=== PATIENT | male | born 1940 | race Caucasian/White ===

== ENCOUNTER 2016-10-20 10:26 | Day surgery (SDC) | payer OTHER ==
[2016-10-20] MEDS ORDERED: LIDOCAINE 1% 2 ML INJ ONE (10:49)
[2016-10-20] MEDS ORDERED: LIDOCAINE 1% 2 ML INJ ID PRN (10:57)
[2016-10-20] MEDS ORDERED: LR 1,000 ML IV SCH (11:00)
[2016-10-20 11:38] LABS: INR 1.93 (0.83-1.16); PROTIME(PATIENT) 22.2 SEC (12.0-15.0)
[2016-10-20 11:49] LABS: ANION GAP 8 mEq/L (8-16); CALCIUM 9.2 mg/dL (8.5-10.4); CARBON DIOXIDE 25 mEq/l (22-31); CHLORIDE 104 mEq/L (97-110); CREATININE 1.2 mg/dL (0.7-1.3); GLOMERULAR FILTRATION RATE 59; GLUCOSE 96 mg/dL (70-100); POTASSIUM 4.6 mEq/L (3.5-5.2); SODIUM 137 mEq/L (134-144)
--- NOTE | 2016-10-20 12:06 | PDANEPAE ---
ANE History of Present Illness burning in substernal area, difficulty swallowing. ANE Past Medical History - Cardiovascular History Hx Hypertension: Yes Hx Arrhythmias: Yes Hx Chest Pain: Yes Hx Coronary Artery / Peripheral Vascular Disease: Yes Hx CHF / Valvular Disease: Yes Hx Palpitations: No - Pulmonary History Hx COPD: No Hx Asthma/Reactive Airway Disease: No Hx Recent Upper Respiratory Infection: No Hx Oxygen in Use at Home: No - Neurologic History Hx Cerebrovascular Accident: No Hx Seizures: No Hx Dementia: No - Endocrine History Hx Diabetes: No - Renal History Hx Renal Disorders: No - Liver History Hx Hepatic Disorders: No - Neurological & Psychiatric Hx Hx Neurological and Psychiatric Disorders: No - Cancer History Hx Cancer: No - Congenital Disorder History Hx Congenital Disorders: No - GI History Hx Gastrointestinal Disorders: Yes - Chronic Pain History Chronic Pain: Yes (ABD) ANE Review of Systems - Exercise capacity Exercise capacity: >=4 METS METS (RN): 3 METS - Systems Cardiac: Reports: edema (hx of CHF) Muscolosketal: Reports: joint pain (gout) - Pacemaker Pacemaker Type: Permanent Pacer/Defib (Model [id number], with defibrillator; with pacemaker for about 38 years following [place]) 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[employer] Pacemaker Model: [id number] ANE Patient History - Allergies Allergies/Adverse Reactions: cephalexin [Cephalexin] Allergy (Verified 08/25/12 14:48) eplerenone [From INSPRA] Allergy (Verified 08/25/12 14:48) - Home Medications Home Medications: Aspirin [Aspir 81] 81 mg PO DAILY 08/25/12 [Last Taken 10/19/16] Carvedilol [Coreg] 50 mg PO BID 08/25/12 [Last Taken 10/20/16] Digoxin [Lanoxin] 0.125 mg PO HS 08/25/12 [Last Taken 10/19/16] Enalapril Maleate [Vasotec 2.5 MG (RX)] 2.5 mg PO DAILY06 08/25/12 [Last Taken 10/20/16] Eplerenone [Inspra 25 MG (RX)] 25 mg PO BID 08/25/12 [Last Taken 10/20/16] Furosemide [Lasix 40 MG (RX)] 40 mg PO BID 08/25/12 [Last Taken 10/19/16] Isosorbide 1 gm MC TID 08/25/12 [Last Taken 10/20/16] Warfarin Sodium [Coumadin 5MG (RX)] mg PO HS 08/25/12 [Last Taken 10/16/16] ASPIRIN DAILY 10/08/16 [Last Taken 10/19/16] Allopurinol DAILY06 10/08/16 [Last Taken 10/19/16] Coreg BID 10/08/16 [Last Taken 10/20/16] Omeprazole DAILY06 10/08/16 [Last Taken 10/19/16] SIMVASTATIN HS 10/08/16 [Last Taken 10/19/16] - NPO status NPO Since - Liquids (Date): 10/19/16 - Anes Hx Anes Hx: 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
[2016-10-20] MEDS ORDERED: MIDAZOLAM 2 MG/2 ML VIAL ONE (12:20)
[2016-10-20] MEDS ORDERED: PROPOFOL 200 MG/20 ML VIAL ONE (12:21)
--- NOTE | 2016-10-20 12:28 | PDGENHP ---
History & Physical Short Chief Complaint: dysphagia History of Present Illness: dysphagia and occ HB Pertinent Past, Social, Family History: fhx no cc. neg ros. alllergies listed Relevant Physical Exam: cta. s1s2, irreg. +BS,soft NT. A+Ox3 Cardiorespiratory Assessment: cta s11 s2, irreg irreg
[2016-10-20] MEDS ORDERED: PHENYLEPHRINE HCL 100 MCG/ML SYR ONE (12:44)
[2016-10-20] MEDS ORDERED: NALOXONE HCL 0.4 MG/ML INJ IVP PRN (12:56)
[2016-10-20] MEDS ORDERED: fentaNYL 100 MCG/2 ML INJ IVP PRN (12:56)
--- NOTE | 2016-10-20 13:02 | POSTOPPROG ---
Post Op Note Date of Operation: 10/20/16 Surgeon: Christoph Conti Anesthesiologist: oliver Anesthesia: Other (Specify) (IV general) Pre-op Diagnosis: dysphagia Post-op Diagnosis: distal esoph stenosis s/p balloon dilation Indication: dysphagia Procedure: egd with bx and balloon dilation Findings: esoph stenosis Inf/Abcess present in the surg proc area at time of surgery?: No EBL: Minimal (few ml) Complications: none immediate
[2016-10-20 13:08] VITALS: TEMP 97.7
[2016-10-20 13:20] VITALS: PULSE 75
[2016-10-20 13:35] VITALS: RESP 16
--- NOTE | 2016-10-20 13:55 | GPN ---
[f rep st] PROCEDURE NOTE PROCEDURE: Esophagogastroduodenoscopy with biopsy and dilation procedure report. INDICATION: Dysphagia. PREOPERATIVE DIAGNOSIS: Rule out Schatzki's ring. POSTOPERATIVE DIAGNOSES: 1. Distal esophageal stenosis, status post dilation to 20 mm with a TTS balloon. 2. Otherwise normal mucosa in the esophagus, stomach and duodenum. 3. Query achalasia? INFORMED CONSENT: I did discuss with the patient regarding the procedure, alternatives, benefits, and risks including bleeding, perforation, infection, risk of medication. Informed consent was signed and witnessed. COMPLICATIONS: None immediate. MEDICATIONS: IV general as per Dr. Leblanc. DESCRIPTION OF PROCEDURE: After adequate sedation, patient remained in left lateral decubitus position and I inserted the forward viewing upper endoscope via the oropharynx. I advanced it under visualization down the esophagus. The proximal, mid and distal esophageal mucosa were normal. There was a mild stenosis at the GE junction. There was a suggestion of this was achalasia with some mild bird beak type narrowing and no significant esophagitis. The endoscope was advanced in the stomach. There were no ulcers or masses. There was no gastritis. The pylorus was normal. The duodenal bulb and sweep were normal. The endoscope was withdrawn into the stomach and retroflexed examination was performed. The endoscope was un-retroflexed, and air was removed from the stomach. A TTS balloon was placed via the endoscope and across the GE junction. It was inflated to 18 mm at the recommended pressure for a period of 30 seconds. There was no significant resistance and no heme. We then had it inflated to 19 mm at the recommended pressure for 1 minute. There was a small amount of heme. The balloon was deflated. The area was examined. The balloon was then repositioned and inflated to 20 mm at the recommended pressure for 1 minute. The balloon was then deflated and removed. The endoscope was advanced in the stomach and more air was removed. The endoscope was withdrawn back into the distal esophagus. There was a small tear noted right at the GE junction. There was a small amount heme but no significant bleeding. The endoscope was withdrawn into the mid esophagus, and biopsies were obtained for histologic review. The endoscope was then completely withdrawn, confirming the above findings. The patient tolerated the procedure well and was transferred to the recovery room in satisfactory condition. IMPRESSION: 1. Distal esophageal stenosis, status post dilation with 20 mm balloon with mild dilation performed at 19 and 20 mm with minimal bleeding. 2. No evidence of esophagitis. 3. Biopsies to midesophagus to rule out eosinophilic esophagitis (I doubt this is present). 4. Normal stomach and duodenum. RECOMMENDATIONS: 1. Follow up pathology. 2. Start pantoprazole 40 mg p.o. daily for 4 weeks. If patient recognizes the absence of reflux symptoms when he is on the medication or has significant recurrence of reflux symptoms when he is off, we may want longer term acid- reducing medications. 3. Antireflux lifestyle changes. 4. Cut food into small pieces and chew well. 5. Patient can restart Coumadin tonight as per managing MD. 6. If his dysphagia does not resolve or recurs quickly, I would recommend esophageal manometry for possible achalasia. If achalasia is documented, then treatment would either be surgical myotomy, 30 mm balloon dilation, or Botox injection. 7. If patient has no reflux symptoms and dysphagia does not recur, it is still likely related to acid reflux. He did have a distal esophageal stricture dilated in 2005 and had not had issues for 11 years. It is possible that he would do well without any acid medications even if this is a reflux stenosis if he is asymptomatic. However, if he has reflux symptoms, then long-term acid medications would be recommended. H2 receptor antagonist may be strong enough to prevent restenosis. 8. Further recommendations to follow results of above and clinical course. 9. Follow up with Dexter Montague MD as scheduled. Thank you for allowing me to participate in this patient's healthcare. Do not hesitate to call me with any questions. /[id number]/MODL MTDD
[2016-10-20 13:58] VITALS: BP 100/61; O2SAT 94
== END 2016-10-20 14:00 | disposition home or self-care (01) ==
LOC: FSGY 10:26
PROVIDERS: ATTEND Internal Medicine Gastroenterology
DX: K22.2 Esophageal obstruction (principal); R13.10 Dysphagia, unspecified; R10.9 Unspecified abdominal pain; I11.9 Hypertensive heart disease without heart failure; I50.9 Heart failure, unspecified; I25.10 Atherosclerotic heart disease of native coronary artery without angina pectoris; M10.9 Gout, unspecified; I49.9 Cardiac arrhythmia, unspecified; Z79.01 Long term (current) use of anticoagulants; Z87.891 Personal history of nicotine dependence; Z95.810 Presence of automatic (implantable) cardiac defibrillator
CPT/HCPCS: 43239; 43249; C1726; J2250; J2370; J2704